=== PATIENT | male | born 1985 | race Caucasian/White ===

== ENCOUNTER 2024-08-16 22:40 | Emergency (ER) | payer OTHER, SELFPAY ==
[2024-08-16 22:41] VITALS: BP 151/76; PULSE 137; RESP 16; TEMP 37.4; O2SAT 95; BMI 32.7
[2024-08-16 22:44] VITALS: BP 143/95; PULSE 115; RESP 19; TEMP 37.5; O2SAT 96
[2024-08-16 22:58] LABS: Absolute Lymphocyte Count 1.55 X10^3/uL (0.83-4.51); Basophil# 0.06 X10^3/uL; Basophil% 0.4 % (0-1); Hematocrit 42.7 % (40-54); Hemoglobin 15.3 g/dL (13.0-16.5); Lymphocyte # 1.55 X10^3/ul (0.83-4.51); Lymphocyte % 9.7 % (19-41); Mean Corp Hgb Conc 35.8 g/dL (32-36); Mean Corpuscular Hgb 29.7 pg (27.0-32.0); Mean Corpuscular Volume 82.8 fL (80-94); Mean Platelet Vol. 8.5 fl (6.2-12.0); Monocyte# 1.27 X10^3/uL; Monocyte% 7.9 % (0-10); NRBC Flagged by Analyzer 0 % (0-5); Neutrophil # 13.04 X10^3/uL (2.7-7.7); Neutrophil % 81.6 % (47-70); Platelet Count 226 K/mm3 (150-450); RBC Distribution Width CV 11.9 % (11.6-14.6); RBC Distribution Width SD 35.8 fl (35.1-43.9); Red Blood Count 5.16 M/mm3 (4.6-6.2)
[2024-08-16 23:13] LABS: ALB/GLOB Ratio 0.9 RATIO (0.9-2.4); AST(SGOT) 24 U/L (15-37); Alanine Aminotransfer ALT/SGPT 35 U/L (16-61); Alkaline Phosphatase 77 U/L (45-117); Anion Gap 10 (5-15); BUN 22 mg/dL (7-18); BUN/Creat Ratio 17.1 RATIO (10-20); Chloride 104 mmol/L (98-107); Creatinine, Serum 1.29 mg/dL (0.70-1.30); EST Glomerular Filtration Rate 66 mL/min (>60); Est Glom Filt Rate - Afr Amer 80 mL/min (>60); Estimated Creatinine Clearance 94.47 ml/min; Globulin 4.5 g/dL (2.2-4.2); Glucose 120 mg/dL (74-106); Potassium 3.7 mmol/L (3.5-5.1); Protein, Total 8.5 g/dL (6.4-8.2); Sodium Level 132 mmol/L (136-145)
--- NOTE | 2024-08-16 23:38 | EDS_ITS ---
HPI History of Present Illness Chief Complaint: General Illness Narrative Narrative: 38-year-old male who denies significant past medical history presents with his significant other because of multiple somatic complaints. He states he has been sick since Tuesday, 2 days ago. It started out as a sore throat and a fever. States he has had a sustained high fever, and intermittently took ibuprofen and Tylenol severe cold. He has bodyaches and arthralgias and feels dehydrated. He states he vomited a few times and is nauseated and he had blood tinges in his emesis. He has had diarrhea as well. Past surgical history does include hernia repair. Out of all his symptoms, he states he feels dehydrated. He is generally weak as well. He has had headache as well. PFSH PFSH Allergy/AdvReac Type Severity Reaction Status Date / Time No Known Allergies Allergy Verified 08/16/24 22:42 Social History Smoking Status: Never smoker ROS ROS ED ROS Narrative Constitutional: Positive fever, questionable chills. Generalized weakness. HEENT: Positive sore throat. No neck pain. No loss of vision. No rhinorrhea. Cardiovascular: No chest pain. No palpitations. No pedal edema. Respiratory: No cough, no shortness of breath. Abdominal: Positive abdominal pain. Positive nausea, vomiting, and diarrhea with blood tinges in emesis. Genitourinary: No dysuria. No hematuria. Musculoskeletal: Positive myalgias. Positive arthralgias. Neurologic: Positive headaches. No dizziness. No lightheadedness. Skin: No rash. No change in color. EXAM Physical Exam Narrative Exam Narrative: Afebrile. Vital signs noted. Nontoxic-appearing. Tacky mucous membranes with minimal pharyngeal erythema. Airway patent. Neck soft and supple without meningismus. Cardiovascular examination reveals a mild tachycardia. Lungs are clear to auscultation bilaterally. Abdomen soft nontender with normoactive bowel sounds. Neurological examination nonfocal and nonlateralizing. Const Vital Signs: 08/16/24 22:41 08/16/24 22:44 08/16/24 23:44 Temperature 99.3 F H 99.5 F H 99.5 F H Temperature Source Oral Oral Oral Pulse Rate 137 H 115 H 109 H Respiratory Rate 16 19 H 18 Blood Pressure 151/76 H 143/95 H 145/90 H Blood Pressure Mean 101 111 108 Pulse Ox 95 96 99 Oxygen Delivery Method Room Air Room Air Room Air 08/17/24 00:00 08/17/24 00:41 08/17/24 01:00 Temperature 99.2 F H 99.2 F H Temperature Source Oral Oral Pulse Rate 100 91 99 Respiratory Rate 18 19 H 18 Blood Pressure 149/82 H 151/90 H 131/88 H Blood Pressure Mean 104 110 102 Pulse Ox 98 97 97 Oxygen Delivery Method Room Air Room Air Room Air 08/17/24 02:00 Temperature 99.1 F Temperature Source Oral Pulse Rate 111 H Respiratory Rate 16 Blood Pressure 136/87 H Blood Pressure Mean 103 Pulse Ox 97 Oxygen Delivery Method Room Air MDM MDM MDM Narrative Medical decision making narrative: Differential diagnosis includes but not limited to dehydration versus other electrolyte abnormality versus viral syndrome including COVID, influenza, or RSV. Along sounds are clear and his pulse ox is 96% on room air so I doubt pneumonia. Patient does have elevated white count of 16 which goes with his infectious process which may be viral. Hemoglobin normal at 15.3 with hematocrit 42.7, platelet count 226. Sodium slightly low at 132 with normal potassium of 3.7, carbon dioxide 19 which may be secondary to hyperventilation, BUN elevated at 22 with normal creatinine of 1.29. Alysis is negative for infection but positive for 150 ketones which shows mild dehydration. He was bolused normal saline 1 L intravenously. LFTs are grossly unremarkable. Glucose elevated at 120 with a normal anion gap of 10. Lipase is normal at 36 so I doubt pancreatitis. Lactic acid normal at 1.0 so I doubt sepsis. There was delay by lab with his respiratory swab, but it has returned as negative for COVID, influenza, and RSV. At this point in time, I feel he can be discharged to follow-up with his primary care provider. Patient inquired about antibiotics because of an elevated white count of 16, but I do not feel that is indicated. Additionally, we discussed the utility of a chest x-ray, but he is n ot having upper respiratory symptoms such as cough or shortness of breath, and he declined x-ray. He had asked the RN for something for his fever, but he has documented temperatures of 99.3 and 99.1. I had written for Toradol, but he declined this as well stating that he will take his Tylenol and ibuprofen at home. He will follow-up with his primary care provider. Disposition is discharged home in stable condition. History & Record Review Discussion w/independent historian: Patient Lab Data Attestation: I reviewed the patient's lab results. Labs: Laboratory Results - last 24 hr 08/16/24 08/16/24 08/17/24 22:49 23:49 00:57 WBC 16.0 H RBC 5.16 Hgb 15.3 Hct 42.7 MCV 82.8 MCH 29.7 MCHC 35.8 RDW Std Deviation 35.8 RDW Coeff of Sean 11.9 Plt Count 226 MPV 8.5 Immature Gran % (Auto) 0.400 Neut % (Auto) 81.6 H Lymph % (Auto) 9.7 L [place] % (Auto) 7.9 Eos % (Auto) 0.0 Baso % (Auto) 0.4 Absolute Neuts (auto) 13.0 H Absolute Lymphs (auto) 1.55 Nucleated RBC % 0 Sodium 132 L Potassium 3.7 Chloride 104 Carbon Dioxide 19.0 L Anion Gap 10 BUN 22 H Creatinine 1.29 Estim Creat Clear Calc 94.47 Est GFR (MDRD) Af Amer 80 Est GFR (MDRD) Non-Af 66 BUN/Creatinine Ratio 17.1 Glucose 120 H Lactic Acid 1.0 Calcium 9.0 Total Bilirubin 0.80 AST 24 ALT 35 Alkaline Phosphatase 77 Total Protein 8.5 H Albumin 4.0 Globulin 4.5 H Albumin/Globulin Ratio 0.9 Lipase 36 Urine Color Cancelled Urine Clarity Urine pH Ur Specific Dane U Specif Grav (Refrac) Urine Protein Urine Glucose (UA) Urine Ketones Urine Occult Blood Urine Nitrite Urine Bilirubin Urine Urobilinogen Ur Leukocyte Esterase Urine RBC Urine WBC Ur Squamous Epith Cells Ur Transition Epith Cell Ur Renal Epithelial Cell Calcium Oxalate Crystal Uric Acid Crystals Triple Phos Crystals Other Crystals Amorphous Sediment Urine Bacteria Hyaline Casts Fine Granular Casts Coarse Granular Casts Waxy Casts RBC Casts WBC Casts Urine Mucus Urine Trichomonas Urine Yeast 08/17/24 08/17/24 08/17/24 00:57 00:57 00:57 WBC RBC Hgb Hct MCV MCH MCHC RDW Std Deviation RDW Coeff of Sean Plt Count MPV Immature Gran % (Auto) Neut % (Auto) Lymph % (Auto) [place] % (Auto) Eos % (Auto) Baso % (Auto) Absolute Neuts (auto) Absolute Lymphs (auto) Nucleated RBC % Sodium Potassium Chloride Carbon Dioxide Anion Gap BUN Creatinine Estim Creat Clear Calc Est GFR (MDRD) Af Amer Est GFR (MDRD) Non-Af BUN/Creatinine Ratio Glucose Lactic Acid Calcium Total Bilirubin AST ALT Alkaline Phosphatase Total Protein Albumin Globulin Albumin/Globulin Ratio Lipase Urine Color Yellow Urine Clarity Cancelled Clear Urine pH Cancelled 6.0 Ur Specific Dane Cancelled U Specif Grav (Refrac) Urine Protein Urine Glucose (UA) Urine Ketones Urine Occult Blood Urine Nitrite Urine Bilirubin Urine Urobilinogen Ur Leukocyte Esterase Urine RBC Urine WBC Ur Squamous Epith Cells Ur Transition Epith Cell Ur Renal Epithelial Cell Calcium Oxalate Crystal Uric Acid Crystals Triple Phos Crystals Other Crystals Amorphous Sediment Urine Bacteria Hyaline Casts Fine Granular Casts Coarse Granular Casts Waxy Casts RBC Casts WBC Casts Urine Mucus Urine Trichomonas Urine Yeast 08/17/24 08/17/24 08/17/24 00:57 00:57 00:57 WBC RBC Hgb Hct MCV MCH MCHC RDW Std Deviation RDW Coeff of Sean Plt Count MPV Immature Gran % (Auto) Neut % (Auto) Lymph % (Auto) [place] % (Auto) Eos % (Auto) Baso % (Auto) Absolute Neuts (auto) Absolute Lymphs (auto) Nucleated RBC % Sodium Potassium Chloride Carbon Dioxide Anion Gap BUN Creatinine Estim Creat Clear Calc Est GFR (MDRD) Af Amer Est GFR (MDRD) Non-Af BUN/Creatinine Ratio Glucose Lactic Acid Calcium Total Bilirubin AST ALT Alkaline Phosphatase Total Protein Albumin Globulin Albumin/Globulin Ratio Lipase Urine Color Urine Clarity Urine pH Ur Specific Dane 1.025 U Specif Grav (Refrac) Cancelled Urine Protein Cancelled 100 H Urine Glucose (UA) Cancelled Normal Urine Ketones Cancelled Urine Occult Blood Urine Nitrite Urine Bilirubin Urine Urobilinogen Ur Leukocyte Esterase Urine RBC Urine WBC Ur Squamous Epith Cells Ur Transition Epith Cell Ur Renal Epithelial Cell Calcium Oxalate Crystal Uric Acid Crystals Triple Phos Crystals Other Crystals Amorphous Sediment Urine Bacteria Hyaline Casts Fine Granular Casts Coarse Granular Casts Waxy Casts RBC Casts WBC Casts Urine Mucus Urine Trichomonas Urine Yeast 08/17/24 08/17/24 08/17/24 00:57 00:57 00:57 WBC RBC Hgb Hct MCV MCH MCHC RDW Std Deviation RDW Coeff of Sean Plt Count MPV Immature Gran % (Auto) Neut % (Auto) Lymph % (Auto) [place] % (Auto) Eos % (Auto) Baso % (Auto) Absolute Neuts (auto) Absolute Lymphs (auto) Nucleated RBC % Sodium Potassium Chloride Carbon Dioxide Anion Gap BUN Creatinine Estim Creat Clear Calc Est GFR (MDRD) Af Amer Est GFR (MDRD) Non-Af BUN/Creatinine Ratio Glucose Lactic Acid Calcium Total Bilirubin AST ALT Alkaline Phosphatase Total Protein Albumin Globulin Albumin/Globulin Ratio Lipase Urine Color Urine Clarity Urine pH Ur Specific Dane U Specif Grav (Refrac) Urine Protein Urine Glucose (UA) Urine Ketones 150 A* Urine Occult Blood Cancelled 25 H Urine Nitrite Cancelled Negative Urine Bilirubin Cancelled Urine Urobilinogen Ur Leukocyte Esterase Urine RBC Urine WBC Ur Squamous Epith Cells Ur Transition Epith Cell Ur Renal Epithelial Cell Calcium Oxalate Crystal Uric Acid Crystals Triple Phos Crystals Other Crystals Amorphous Sediment Urine Bacteria Hyaline Casts Fine Granular Casts Coarse Granular Casts Waxy Casts RBC Casts WBC Casts Urine Mucus Urine Trichomonas Urine Yeast 08/17/24 08/17/24 08/17/24 00:57 00:57 00:57 WBC RBC Hgb Hct MCV MCH MCHC RDW Std Deviation RDW Coeff of Sean Plt Count MPV Immature Gran % (Auto) Neut % (Auto) Lymph % (Auto) [place] % (Auto) Eos % (Auto) Baso % (Auto) Absolute Neuts (auto) Absolute Lymphs (auto) Nucleated RBC % Sodium Potassium Chloride Carbon Dioxide Anion Gap BUN Creatinine Estim Creat Clear Calc Est GFR (MDRD) Af Amer Est GFR (MDRD) Non-Af BUN/Creatinine Ratio Glucose Lactic Acid Calcium Total Bilirubin AST ALT Alkaline Phosphatase Total Protein Albumin Globulin Albumin/Globulin Ratio Lipase Urine Color Urine Clarity Urine pH Ur Specific [place] U Specif Grav (Refrac) Urine Protein Urine Glucose (UA) Urine Ketones Urine Occult Blood Urine Nitrite Urine Bilirubin Negative Urine Urobilinogen Cancelled 1 H Ur Leukocyte Esterase Cancelled Negative Urine RBC Cancelled Urine WBC Ur Squamous Epith Cells Ur Transition Epith Cell Ur Renal Epithelial Cell Calcium Oxalate Crystal Uric Acid Crystals Triple Phos Crystals Other Crystals Amorphous Sediment Urine Bacteria Hyaline Casts Fine Granular Casts Coarse Granular Casts Waxy Casts RBC Casts WBC Casts Urine Mucus Urine Trichomonas Urine Yeast 08/17/24 08/17/24 08/17/24 00:57 00:57 00:57 WBC RBC Hgb Hct MCV MCH MCHC RDW Std Deviation RDW Coeff of Sean Plt Count MPV Immature Gran % (Auto) Neut % (Auto) Lymph % (Auto) [place] % (Auto) Eos % (Auto) Baso % (Auto) Absolute Neuts (auto) Absolute Lymphs (auto) Nucleated RBC % Sodium Potassium Chloride Carbon Dioxide Anion Gap BUN Creatinine Estim Creat Clear Calc Est GFR (MDRD) Af Amer Est GFR (MDRD) Non-Af BUN/Creatinine Ratio Glucose Lactic Acid Calcium Total Bilirubin AST ALT Alkaline Phosphatase Total Protein Albumin Globulin Albumin/Globulin Ratio Lipase Urine Color Urine Clarity Urine pH Ur Specific [place] U Specif Grav (Refrac) Urine Protein Urine Glucose (UA) Urine Ketones Urine Occult Blood Urine Nitrite Urine Bilirubin Urine Urobilinogen Ur Leukocyte Esterase Urine RBC 0 SEEN Urine WBC Cancelled 0 SEEN Ur Squamous Epith Cells Cancelled 0 SEEN Ur Transition Epith Cell Cancelled Ur Renal Epithelial Cell Cancelled Calcium Oxalate Crystal Cancelled Uric Acid Crystals Cancelled Triple Phos Crystals Cancelled Other Crystals Cancelled Amorphous Sediment Cancelled Urine Bacteria Cancelled Hyaline Casts Fine Granular Casts Coarse Granular Casts Waxy Casts RBC Casts WBC Casts Urine Mucus Urine Trichomonas Urine Yeast 08/17/24 08/17/24 00:57 00:57 WBC RBC Hgb Hct MCV MCH MCHC RDW Std Deviation RDW Coeff of Sean Plt Count MPV Immature Gran % (Auto) Neut % (Auto) Lymph % (Auto) [place] % (Auto) Eos % (Auto) Baso % (Auto) Absolute Neuts (auto) Absolute Lymphs (auto) Nucleated RBC % Sodium Potassium Chloride Carbon Dioxide Anion Gap BUN Creatinine Estim Creat Clear Calc Est GFR (MDRD) Af Amer Est GFR (MDRD) Non-Af BUN/Creatinine Ratio Glucose Lactic Acid Calcium Total Bilirubin AST ALT Alkaline Phosphatase Total Protein Albumin Globulin Albumin/Globulin Ratio Lipase Urine Color Urine Clarity Urine pH Ur Specific [place] U Specif Grav (Refrac) Urine Protein Urine Glucose (UA) Urine Ketones Urine Occult Blood Urine Nitrite Urine Bilirubin Urine Urobilinogen Ur Leukocyte Esterase Urine RBC Urine WBC Ur Squamous Epith Cells Ur Transition Epith Cell Ur Renal Epithelial Cell Calcium Oxalate Crystal Uric Acid Crystals Triple Phos Crystals Other Crystals Amorphous Sediment Urine Bacteria 1+ Hyaline Casts Cancelled Fine Granular Casts Cancelled Coarse Granular Casts Cancelled Waxy Casts Cancelled RBC Casts Cancelled WBC Casts Cancelled Urine Mucus Cancelled 1+ Urine Trichomonas Cancelled Urine Yeast Cancelled Discharge Plan Triage Chief Complaint: General Illness Other Complaint: Nausea/Vomiting/Diarrhea ED Provider: [place] Dx/Rx/DC Orders Clinical Impression: Viral syndrome, Fever Instructions: ED Fever Control (Adult), ED Viral Syndrome (Adult), ED URI, Viral, No Abx (Adult), ED Vomit Diarrhea [place] Adult Primary Care Provider: Care Physician,No Primary Referrals: Anmol Curran MD [Non-Staff] - Activity Restrictions/Additional Instructions: Continue your Tylenol and/or ibuprofen at home. Follow-up with your primary care provider in the next 3 to 5 days. Return with new or worsening symptoms. Print Language: Macedonian Disposition Disposition: Home, Self Care
[2024-08-16 23:44] VITALS: BP 145/90; PULSE 109; RESP 18; TEMP 37.5; O2SAT 99
[2024-08-16] MEDS: 0.9% Normal Saline (1000mL) 1,000 ML 999 ML IV (23:58)
[2024-08-17] VITALS: BP 149/82; PULSE 100; RESP 18; TEMP 37.3; O2SAT 98
[2024-08-17 00:18] LABS: Lipase 36 U/L (13-75)
[2024-08-17 00:41] VITALS: BP 151/90; PULSE 91; RESP 19; O2SAT 97
[2024-08-17 01:00] VITALS: BP 131/88; PULSE 99; RESP 18; TEMP 37.3; O2SAT 97
[2024-08-17 01:02] LABS: Red Blood Cells-Urine 0 SEEN /hpf (0-5); Squamous Epithelial Cells - UA 0 SEEN /hpf (0-5); White Blood Cells 0 SEEN /hpf (0-5)
[2024-08-17 01:12] LABS: Glucose, Dipstick Normal (Normal); Leukocyte Esterase-Dipstick Negative /ul (Negative); Nitrite-Dipstick Negative (Negative); Occult Blood-Urine 25 /ul (Negative); Protein-Dipstick 100 mg/dl (Negative); Specific Gravity, Urine 1.025 (1.002-1.030); Urine Bilirubin Dipstick Negative (Negative); Urine Urobilinogen 1 mg/dl (Normal)
[2024-08-17 01:21] LABS: Color, Urine Yellow (Yellow); Urine Clarity Clear (Clear)
[2024-08-17 01:22] LABS: Ketone-Dipstick 150 mg/dl (Negative)
[2024-08-17 01:26] LABS: Bacteria 1+ /hpf (None Seen); Mucous, Urine 1+ /hpf (<or=2+)
[2024-08-17 02:00] VITALS: BP 136/87; PULSE 111; RESP 16; TEMP 37.3; O2SAT 97
[2024-08-17 02:41] VITALS: BP 131/79; PULSE 111; RESP 18; TEMP 37.2; O2SAT 99
== END 2024-08-17 02:42 | disposition home or self-care (01) ==
PROVIDERS: Emergency Provider Emergency Medicine; Visit Provider Emergency Medicine
DX: B34.9 Viral infection, unspecified (principal); R19.7 Diarrhea, unspecified; R11.2 Nausea with vomiting, unspecified; R50.9 Fever, unspecified
CPT/HCPCS: 80053; 81001; 83605; 83690; 85025; 87631; 96360; 99284; A4216